=== PATIENT | female | born 1990 | race Caucasian/White ===

== ENCOUNTER 2021-08-17 07:17 | Emergency (ER) | payer SELFPAY ==
[2021-08-17] MEDS ORDERED: MORPHINE 4 MG/1 ML INJ IV ONE ×2 (09:46→11:29)
[2021-08-17] MEDS ORDERED: ONDANSETRON 4 MG/2 ML INJ IV ONE (09:46)
[2021-08-17] MEDS ORDERED: SODIUM CHLORIDE 0.9% 1000 ML 1,000 ML IV ONE (09:46)
--- NOTE | 2021-08-17 10:05 | Emergency Department Report ---
ED General Adult HPI - General Chief complaint: Sickle Cell Crisis Stated complaint: SICKLE CELL CRISIS PUI?: No Time Seen by Provider: 08/17/21 09:34 Source: patient Mode of arrival: Ambulatory Limitations: No Limitations - History of Present Illness Initial comments: 31-year-old -[place] obese female with a history of asthma and sickle cell disease presents to the ER today with complaints of flareup of her sickle cell pain. Patient states that symptoms started about 2 days ago. She complains of pain diffusely to her entire back, diffusely to her entire abdomen and both legs. Patient states that these are typical areas of pain when her sickle cell pain flares up. She reports associated vomiting x3, and she has had 1 episodes of watery stools. Patient states that she was on Dilaudid and morphine but ran out yesterday. She states that she recently moved here from [place] 2 days ago and has not been able to establish with a provider here locally as yet. Patient states that the last time she was admitted for sickle cell was about 1 week ago while in [place] and she was hospitalized for about 2 weeks. She is unsure of her baseline hemoglobin. She denies any fever, chills, chest pain, SOB, URI symptoms or cough, lower extremity swelling, fever, or chills. She denies any UTI symptoms. She states that she is currently on Depo which makes her menstrual cycles irregular but the last time she had a period was April 2021. Complaint: Sickle Cell pain -: days(s) (2) - Related Data Previous Rx's Medication Instructions Recorded Last Taken Type HYDROcodone/APAP 7.5-325 [Haswell 1 each PO Q6HR PRN #12 tablet 08/17/21 Unknown Rx 7.5/325] Promethazine [Phenergan] 25 mg PO Q6HR PRN #15 tab 08/17/21 Unknown Rx Allergies Allergy/AdvReac Type Severity Reaction Status Date / Time acetaminophen [From Tylenol] Allergy Unknown Verified 08/17/21 08:23 clindamycin Allergy Unknown Verified 08/17/21 08:23 hydrocodone Allergy Unknown Verified 08/17/21 08:23 ketorolac [From Toradol] Allergy Unknown Verified 08/17/21 08:23 naproxen Allergy Unknown Verified 08/17/21 08:23 oxycodone Allergy Unknown Verified 08/17/21 08:23 Penicillins Allergy Unknown Verified 08/17/21 08:23 senna Allergy Unknown Verified 08/17/21 08:23 ED Review of Systems ROS: Stated complaint: SICKLE CELL CRISIS Other details as noted in HPI Comment: All other systems reviewed and negative Constitutional: denies: chills, fever Eyes: denies: eye pain, eye discharge, vision change ENT: denies: ear pain, throat pain Respiratory: denies: cough, shortness of breath, SOB with exertion, SOB at rest, wheezing Cardiovascular: denies: chest pain, palpitations Gastrointestinal: abdominal pain, nausea, vomiting. denies: diarrhea, constipation, hematemesis, melena, hematochezia Genitourinary: denies: urgency, dysuria, discharge Musculoskeletal: back pain Skin: denies: rash, lesions, change in color, change in hair/nails, pruritus Neurological: denies: headache, weakness, numbness, paresthesias, confusion, abnormal gait, vertigo Psychiatric: denies: anxiety, depression, auditory hallucinations, visual hallucinations, homicidal thoughts, suicidal thoughts Hematological/Lymphatic: denies: easy bleeding, easy bruising, swollen glands ED Past Medical Hx - Past Medical History Previous Medical History?: Yes Hx Sickle Cell Disease: Yes Hx Asthma: Yes - Surgical History Past Surgical History?: No - Medications Home Medications: Home Medications Medication Instructions Recorded Confirmed Last Taken Type HYDROcodone/APAP 7.5-325 [Haswell 1 each PO Q6HR PRN #12 tablet 08/17/21 Unknown Rx 7.5/325] Promethazine [Phenergan] 25 mg PO Q6HR PRN #15 tab 08/17/21 Unknown Rx ED Physical Exam - General Limitations: No Limitations General appearance: alert, in no apparent distress, obese - Head Head exam: Present: atraumatic, normocephalic, normal inspection - Eye Eye exam: Present: PERRL, EOMI, scleral icterus Pupils: Present: normal accommodation - Neck Neck exam: Present: normal inspection, full ROM. Absent: meningismus - Respiratory Respiratory exam: Present: normal lung sounds bilaterally. Absent: respiratory distress, wheezes, rales, rhonchi - Cardiovascular Cardiovascular Exam: Present: regular rate, normal rhythm, normal heart sounds - GI/Abdominal GI/Abdominal exam: Present: soft. Absent: distended, tenderness, guarding, rebound - Extremities Exam Extremities exam: Present: normal inspection, full ROM, tenderness (Diffusely to entire lower leg bilateral). Absent: normal capillary refill, pedal edema - Neurological Exam Neurological exam: Present: alert, oriented X3, CN II-XII intact, normal gait - Psychiatric Psychiatric exam: Present: normal affect, normal mood - Skin Skin exam: Present: intact ED Course Vital Signs 08/17/21 08/17/21 08:23 16:52 Temperature 99.4 F 98.0 F Pulse Rate 114 H 102 H Respiratory 16 16 Rate Blood Pressure 143/87 134/86 [Left] O2 Sat by Pulse 98 98 Oximetry ED Medical Decision Making - Lab Data Result diagrams: 08/17/21 14:00 08/17/21 14:00 - Medical Decision Making Labs reviewed -patient white count is normal, H&H is also normal, platelet count is normal and her retake count is 5.85; CMP reviewed, -- T bili 2.5 suspect sec to her hx SCD, remaining CMP values unremarkable. UA normal. Patient asking for more pain medication due to she has been observed patient sitting comfortably, resting on recliner on her phone. She received total of morphine 8 mg and Dilaudid one as well as Benadryl 25 mg IV. She does not appear to be in any acute distress. She has no chest pain or shortness of breath. She has a soft nontender abdomen. She has not had any vomiting during stay. She has no lower extremity swelling or calf tenderness. Her vital signs are stable. I do not see an indication for continued pain medication, continued testing, or admission at this time. Patient has pain but not in crisis at this time. Patient reported that she is out of her pain medication for the past 2 days past 2 days. Reviewed patient information on [facility], and on August 14, 2020 patient received 7 tablets of morphine ER 15 mg (which should last until 08/21), and on August 13, 2021 she received 3 tablets of Dilaudid 2 mg, this past month alone patient had received a total of 44 tablets of morphine, 24 tablets of Dilaudid. At most patient will receive a prescription for hydrocodone and a prescription for Phenergan but she will need to follow-up with local roller skates assembler and or her primary care doctor continued refill on her morphine and Dilaudid if indicated. Patient will be given referral follow-ups to PCP and also hematology. She was also recommended to [facility]. Patient expressed understanding. Patient was stable at time of discharge Critical care attestation.: If time is entered above; I have spent that time in minutes in the direct care of this critically ill patient, excluding procedure time. ED Disposition Clinical Impression: Sickle-cell disease with pain Disposition: 01 HOME / SELF CARE / HOMELESS Is pt being admited?: No Does the pt Need Aspirin: No Condition: Stable Instructions: Sickle Cell Testing, Chronic Pain, Adult Additional Instructions: I recommend that you take the hydrocodone as prescribed to help with your pain. You can take Phenergan to help with nausea and vomiting. Follow-up with the roller skates assembler listed on your discharge instructions or you can follow-up with the [facility]le cell clinic for further treatment and evaluation of your sickle cell. Increase your water intake. Return to the ER if your symptoms worsens. Prescriptions: HYDROcodone/APAP 7.5-325 [Haswell 7.5/325] 1 each PO Q6HR PRN #12 tablet PRN Reason: Pain Promethazine [Phenergan] 25 mg PO Q6HR PRN #15 tab PRN Reason: Nausea Referrals: TOSHIA BRAVO MD [Staff Physician] - 3-5 Days TRACEY SANCHEZ MD [Staff Physician] - 3-5 Days Forms: Work/School Release Form(ED) Time of Disposition: 15:55
[2021-08-17] MEDS ORDERED: diphenhydrAMINE 50 MG/ML VIAL IV ONE (11:29)
[2021-08-17 11:45] LABS: Bilirubin,Urine NEG (Negative); Blood,Urine NEG (Negative); Color,Urine Amber (Yellow)
[2021-08-17 11:48] LABS: Bacteria,Urine 2+ /HPF (Negative)
[2021-08-17] MEDS ORDERED: HYDROmorphone 1 MG/1 ML INJ IV ONE (14:05)
[2021-08-17 14:24] LABS: Hematocrit 32.4 % (30.3-42.9); Hemoglobin 10.5 gm/dl (10.1-14.3); Mean Corpuscular HGB Conc 32 % (30-34); Mean Corpuscular Volume 103 fl (79-97); Platelet Count 367 K/mm3 (140-440); Red Blood Count 3.16 M/mm3 (3.65-5.03); Red Cell Distribution Width 23.3 % (13.2-15.2)
[2021-08-17 14:52] LABS: Alanine Aminotransferase 22 units/L (7-56); Albumin 4.8 g/dL (3.9-5); Blood Urea Nitrogen 7 mg/dL (7-17); Calcium 9.1 mg/dL (8.4-10.2); Hemolysis Index 88
[2021-08-17 14:58] LABS: BUN/Creatinine Ratio 18
[2021-08-17 15:43] LABS: Basophils % (Manual) 0 % (0.0-1.8); Eosinophils % (Manual) 0 % (0.0-4.3); Total Cells Counted 100
[2021-08-17 15:44] LABS: Anisocytosis 2+; Ovalocytes Few; Platelet Estimate Consistent w Auto; Poikilocytosis 2+; Sickle Cells Few; Target Cells 2+
[2021-08-17 16:53] VITALS: BP 134/86
== END 2021-08-17 16:53 | disposition home or self-care (01) ==
LOC: ED 07:17
DX: D57.00 Hb-SS disease with crisis, unspecified (principal); J45.909 Unspecified asthma, uncomplicated
CPT/HCPCS: 36415; 80053; 81001; 83690; 84703; 85007; 85025; 85045; 96361; 96374; 96375; 99283; J1170; J1200; J2270; J2405; J7030; Q0162

== ENCOUNTER 2021-08-19 07:52 | Emergency (ER) | payer MEDICARE ==
[2021-08-19] MEDS ORDERED: HYDROmorphone 2 MG/1 ML INJ IM ONE (08:41)
[2021-08-19] MEDS ORDERED: ONDANSETRON 4 MG ODT TAB PO ONE (08:41)
[2021-08-19] MEDS ORDERED: diphenhydrAMINE 25 MG CAP PO ONE (08:41)
[2021-08-19] MEDS ORDERED: SODIUM CHLORIDE 0.9% 1000 ML 1,000 ML IV ONE (08:42)
--- NOTE | 2021-08-19 08:43 | Emergency Department Report ---
ED General Adult HPI - General Chief complaint: Sickle Cell Crisis Stated complaint: SICKEL CELL PUI?: Yes Time Seen by Provider: 08/19/21 08:39 Source: patient, RN notes reviewed, old records reviewed Mode of arrival: Ambulatory Limitations: No Limitations - History of Present Illness Initial comments: The patient was evaluated in the emergency department for symptoms described in the history of present illness. He/she was evaluated in the context of the global COVID-19 pandemic, which necessitated consideration that the patient might be at risk for infection with the virus that causes COVID-19. Institutional protocols and algorithms that pertain to the evaluation of patients at risk for COVID-19 are in a state of rapid change based on information released by regulatory bodies including the CDC and federal and state organizations. These policies and algorithms were followed during the patient's care in the emergency department. Please note that these policies, procedures and recommendations changed on a rapid basis. During the history and physical examination, I am chaperoned by LOUISA Pritchard and LOUISA Fernandez Past medical history: Sickle cell disease, narcotic seeking tendencies, body mass index of 40, avascular necrosis, sickle cell anemia, reflux recent diagnosis of COVID-19. This is a 31-year-old female. She is not known to myself previously. Patiently recently relocated here from [place]. While in [place], she was seen at [facility]. She was evaluated in an emergency room 3 times while in [place], and each time having essentially unremarkable laboratory work. Patient was ultimately admitted to hospital in [place] for sickle cell crisis, and was discharged a few days ago. She has recently relocated here from [place]. She does not have established outpatient care here in the state. She complains of chest wall pain, abdominal pain, nausea, and body aches. No fever. No urinary symptoms. Her pain typically improves with hydromorphone. Of note, documentation from aforementioned hospital indicates that she can receive morphine, fentanyl, and hydromorphone without difficulty. In addition, enclosed documentation from prior hospital valuations indicates that this patient may have narcotic seeking tendencies. It also appears that this patient has had COVID-19 he reports that she is not vaccinated. This patient did not disclose to myself that she had a diagnosis of COVID-19, and this was elucidated while reviewing her old medical records. Her pain typically decreases with hydromorphone. She reports that she is s exually active with one partner, denies a history of STI that she is aware of. She also denies urinary symptoms. This patient was seen in this hospital a few days ago for similar symptoms, and treated and evaluated appropriately, and discharged. Her laboratory studies were essentially unremarkable for acute or emergent findings. -: Gradual, week(s) Location: chest, back, abdomen, left, right, lower extremity Severity scale (0 -10): 10 Quality: aching Consistency: constant Improves with: medication Worsens with: movement - Related Data Previous Rx's Medication Instructions Recorded Last Taken Type HYDROcodone/APAP 7.5-325 [[place] 1 each PO Q6HR PRN #12 tablet 08/17/21 Unknown Rx 7.5/325] Promethazine [Phenergan] 25 mg PO Q6HR PRN #15 tab 08/17/21 Unknown Rx Acetaminophen [Non-Aspirin Extra 500 mg PO Q6HR PRN #30 tablet 08/19/21 Unknown Rx Strength] Albuterol Sulfate [Proair 90 mcg IH Q4HR PRN #2 aer.pow.ba 08/19/21 Unknown Rx Respiclick] DOXYCYCLINE Hyclate [Vibramycin] 100 mg PO Q12HR #20 capsule 08/19/21 Unknown Rx Abran Root [Abran] 250 mg PO QID PRN #30 capsule 08/19/21 Unknown Rx Hydroxyurea 2,000 mg PO QDAY #360 cap 08/19/21 Unknown Rx Pregabalin [Lyrica] 150 mg PO BID #60 cap 08/19/21 Unknown Rx Allergies Allergy/AdvReac Type Severity Reaction Status Date / Time acetaminophen [From Tylenol] Allergy Unknown Verified 08/19/21 08:02 clindamycin Allergy Unknown Verified 08/19/21 08:02 hydrocodone Allergy Unknown Verified 08/19/21 08:02 ketorolac [From Toradol] Allergy Unknown Verified 08/19/21 08:02 naproxen Allergy Unknown Verified 08/19/21 08:02 oxycodone Allergy Unknown Verified 08/19/21 08:02 Penicillins Allergy Unknown Verified 08/19/21 08:02 senna Allergy Unknown Verified 08/19/21 08:02 ED Review of Systems ROS: Stated complaint: SICKEL CELL Other details as noted in HPI Constitutional: denies: fever Eyes: denies: eye discharge ENT: denies: congestion Respiratory: denies: wheezing Cardiovascular: chest pain (Chest wall pain) Gastrointestinal: nausea. denies: abdominal pain, vomiting Genitourinary: denies: dysuria Musculoskeletal: back pain, arthralgia, myalgia Hematological/Lymphatic: denies: easy bleeding ED Past Medical Hx - Past Medical History Hx Sickle Cell Disease: Yes Hx Asthma: Yes - Social History Smoking Status: Never Smoker Substance Use Type: None - Medications Home Medications: Home Medications Medication Instructions Recorded Confirmed Last Taken Type HYDROcodone/APAP 7.5-325 [[place] 1 each PO Q6HR PRN #12 tablet 08/17/21 Unknown Rx 7.5/325] Promethazine [Phenergan] 25 mg PO Q6HR PRN #15 tab 08/17/21 Unknown Rx Acetaminophen [Non-Aspirin Extra 500 mg PO Q6HR PRN #30 tablet 08/19/21 Unknown Rx Strength] Albuterol Sulfate [Proair 90 mcg IH Q4HR PRN #2 aer.pow.ba 08/19/21 Unknown Rx Respiclick] DOXYCYCLINE Hyclate [Vibramycin] 100 mg PO Q12HR #20 capsule 08/19/21 Unknown Rx Abran Root [Abran] 250 mg PO QID PRN #30 capsule 08/19/21 Unknown Rx Hydroxyurea 2,000 mg PO QDAY #360 cap 08/19/21 Unknown Rx Pregabalin [Lyrica] 150 mg PO BID #60 cap 08/19/21 Unknown Rx ED Physical Exam - General Limitations: No Limitations General appearance: alert, in no apparent distress, obese - Head Head exam: Present: atraumatic, normocephalic - Eye Eye exam: Present: normal appearance, EOMI. Absent: nystagmus - ENT ENT exam: Present: normal exam, normal orophraynx, mucous membranes moist, normal external ear exam - Neck Neck exam: Present: normal inspection, full ROM. Absent: tenderness, meningismus - Respiratory Respiratory exam: Present: normal lung sounds bilaterally. Absent: respiratory distress, wheezes, rales, rhonchi, stridor, decreased breath sounds - Cardiovascular Cardiovascular Exam: Present: normal rhythm, tachycardia, normal heart sounds. Absent: bradycardia, irregular rhythm, systolic murmur, diastolic murmur, rubs, gallop - GI/Abdominal GI/Abdominal exam: Present: soft, tenderness, other (There is right lower quad rant/suprapubic tenderness). Absent: distended, guarding, rebound, rigid, pulsatile mass - External exam: Present: normal external exam. Absent: erythema, swelling, lesions, lacerations Speculum exam: Present: normal speculum exam, vaginal discharge, cervical discharge, other (Chaperoned by louisa Pritchard). Absent: vaginal bleeding Bi-manual exam: Present: normal bi-manual exam. Absent: cervical motion tend ernes, adnexal tenderness, adnexal mass, uterine enlargement, uterine tenderness - Extremities Exam Extremities exam: Present: normal inspection, full ROM, other (2+ pulses noted in the bilateral upper and lower extremities. There is mild long bony tenderness. The pelvis is stable. The muscular compartments are soft). Absent: pedal edema, calf tenderness - Back Exam Back exam: Present: normal inspection, full ROM, paraspinal tenderness. Absent: tenderness, CVA tenderness (R), CVA tenderness (L), vertebral tenderness - Neurological Exam Neurological exam: Present: alert, oriented X3, normal gait, other (No facial droop. Tongue midline. Extraocular movements intact bilaterally. Facial sensation intact to light touch in V1, V2, V3 distribution bilaterally. 5 and a 5 strength in 4 extremities. Sensation intact to light touch in 4 extremities.). Absent: motor sensory deficit - Psychiatric Psychiatric exam: Present: normal affect, normal mood - Skin Skin exam: Present: warm, dry, intact, normal color. Absent: rash ED Course Vital Signs 08/19/21 08/19/21 08/19/21 08:02 08:26 08:28 Temperature 98.6 F Pulse Rate 117 H 108 H 108 H Respiratory 15 16 16 Rate Blood Pressure 141/91 128/93 Blood Pressure 128/93 [Left] O2 Sat by Pulse 98 98 98 Oximetry 08/19/21 08/19/21 11:50 14:26 Temperature Pulse Rate 90 Respiratory 16 Rate Blood Pressure Blood Pressure 128/86 [Left] O2 Sat by Pulse 100 100 Oximetry - Reevaluation(s) Reevaluation #1: 08/19/21 13:51 Differential diagnosis, including the not limited to: Sickle cell pain, sickle cell crisis, costochondritis, pneumonia, trichomoniasis, pelvic inflammatory disease, appendicitis, pneumonia, COVID-19, Covid long-hauler, narcotic dependence, Assessment and plan: 31-year-old female, who was afebrile, with reassuring vital signs, with improved tachycardia, who is presenting with what appears to be a subacute manifestation of long-term chest wall pain, abdominal pain. Patient seen at multiple hospitals and emergency rooms in [place] for similar symptoms. She was discharged 3 times to the emergency room as well in the [facility], and there is documentation of suspicion for narcotic seeking tendencies. Patient was ultimately admitted while in [place], and found to have Covid 19. The patient is not tachypneic or hypoxic, does not have leg pain or leg swelling at this time. I think pulmonary embolism is unlikely at this time. The patie nt recently had laboratory studies performed at this hospital, which were negative for acute or emergent findings that would require admission or hospitalization. Patient appears comfortable in stretcher/chair, and not in any acute distress. Patient is adamant that she is not been sexually active for a long time, nevertheless, given lower abdominal pain, a gynecologic examination was performed, which was unremarkable, but the patient was found to have trichomoniasis. I explained the significance of trichomoniasis to this patient. She will be medicated with Flagyl, doxycycline, and ceftriaxone. As a third- generation cephalosporin, ceftriaxone is structurally dissimilar to penicillin and very unlikely to cause anaphylactic or anaphylactoid reaction. This patient was observed in this department for a prolonged period of time without clinical decompensation. She is unfortunately allergic to acetaminophen, and ketorolac. Prior discharge paperwork from [facility] indicate that she has received Mobic for pain. It is also documented from her prior medical records that she has received Tylenol/acetaminophen. She will need to follow-up with an outpatient shot dropper, pain specialist, or primary care doctor for dispensation of narcotic/controlled substances. Patient may be discharged from this emergency room with Tylenol, albuterol, hydroxyurea, gabapentin. We will also continue doxycycline. I suspect that pulmonary infiltrates noted on CT scan abdomen pelvis are likely secondary to persistent Covid. Doxycycline for pulmonary coverage, as well as empiric PID coverage 08/19/21 13:55 Patient very difficult IV stick. Potassium hemolyzed. Renal function within normal limits. I do not suspect emergent hyperkalemia at this time. Troponin negative x1. Chest wall pain present for weeks. ED Medical Decision Making - Lab Data Result diagrams: 08/19/21 11:36 08/19/21 12:44 Vital Signs 08/19/21 08/19/21 08/19/21 08:02 08:26 08:28 Temperature 98.6 F Pulse Rate 117 H 108 H 108 H Respiratory 15 16 16 Rate Blood Pressure 141/91 128/93 Blood Pressure 128/93 [Left] O2 Sat by Pulse 98 98 98 Oximetry 08/19/21 11:50 Temperature Pulse Rate Respiratory Rate Blood Pressure Blood Pressure [Left] O2 Sat by Pulse 100 Oximetry Lab Results 08/19/21 08/19/21 08/19/21 Range/Units 11:36 11:36 11:36 WBC 9.4 (4.5-11.0) K/mm3 RBC 2.86 L (3.65-5.03) M/mm3 Hgb 9.6 L (10.1-14.3) gm/dl Hct 28.7 L (30.3-42.9) % MCV 100 H (79-97) fl MCH 34 H (28-32) pg MCHC 34 (30-34) % RDW 23.3 H (13.2-15.2) % Plt Count 323 (140-440) K/mm3 Percent Retic 4.76 H (0.78-2.58) % PT 13.9 (12.2-14.9) Sec. INR 0.96 (0.87-1.13) Sodium TNR Potassium TNR Chloride TNR Carbon Dioxide TNR Anion Gap TNR BUN TNR Creatinine TNR Estimated GFR TNR BUN/Creatinine Ratio TNR Glucose TNR Calcium TNR Magnesium TNR Total Bilirubin TNR AST TNR ALT TNR Alkaline Phosphatase TNR Total Creatine Kinase TNR Troponin T TNR Total Protein TNR Albumin TNR Albumin/Globulin Ratio TNR HCG, Quant (0-4) mIU/mL 08/19/21 08/19/21 Range/Units 11:36 12:44 WBC (4.5-11.0) K/mm3 RBC (3.65-5.03) M/mm3 Hgb (10.1-14.3) gm/dl Hct (30.3-42.9) % MCV (79-97) fl MCH (28-32) pg MCHC (30-34) % RDW (13.2-15.2) % Plt Count (140-440) K/mm3 Percent Retic (0.78-2.58) % PT (12.2-14.9) Sec. INR (0.87-1.13) Sodium 137 Potassium Chloride 106.1 Carbon Dioxide 20 L Anion Gap 17 BUN 5 L Creatinine Estimated GFR BUN/Creatinine Ratio Glucose 87 Calcium 8.9 Magnesium Total Bilirubin AST ALT Alkaline Phosphatase Total Creatine Kinase Troponin T Total Protein Albumin Albumin/Globulin Ratio HCG, Quant < 2 (0-4) mIU/mL Lab Results 08/19/21 08/19/21 08/19/21 Range/Units 11:36 11:36 11:36 WBC 9.4 (4.5-11.0) K/mm3 RBC 2.86 L (3.65-5.03) M/mm3 Hgb 9.6 L (10.1-14.3) gm/dl Hct 28.7 L (30.3-42.9) % MCV 100 H (79-97) fl MCH 34 H (28-32) pg MCHC 34 (30-34) % RDW 23.3 H (13.2-15.2) % Plt Count 323 (140-440) K/mm3 Percent Retic 4.76 H (0.78-2.58) % PT 13.9 (12.2-14.9) Sec. INR 0.96 (0.87-1.13) Sodium TNR Potassium TNR Chloride TNR Carbon Dioxide TNR Anion Gap TNR BUN TNR Creatinine TNR Estimated GFR TNR BUN/Creatinine Ratio TNR Glucose TNR Calcium TNR Magnesium TNR Total Bilirubin TNR AST TNR ALT TNR Alkaline Phosphatase TNR Total Creatine Kinase TNR Troponin T TNR Total Protein TNR Albumin TNR Albumin/Globulin Ratio TNR HCG, Quant (0-4) mIU/mL 08/19/21 08/19/21 08/19/21 Range/Units 11:36 12:44 12:44 WBC (4.5-11.0) K/mm3 RBC (3.65-5.03) M/mm3 Hgb (10.1-14.3) gm/dl Hct (30.3-42.9) % MCV (79-97) fl MCH (28-32) pg MCHC (30-34) % RDW (13.2-15.2) % Plt Count (140-440) K/mm3 Percent Retic (0.78-2.58) % PT (12.2-14.9) Sec. INR (0.87-1.13) Sodium 137 Potassium 6.0 H D Chloride 106.1 Carbon Dioxide 20 L Anion Gap 17 BUN 5 L Creatinine 0.6 Estimated GFR > 60 BUN/Creatinine Ratio 8 Glucose 87 Calcium 8.9 Magnesium Total Bilirubin AST ALT Alkaline Phosphatase Total Creatine Kinase Troponin T < 0.010 Total Protein Albumin Albumin/Globulin Ratio HCG, Quant < 2 (0-4) mIU/mL - EKG Data -: EKG Interpreted by De EKG shows normal: sinus rhythm Rate: tachycardia - EKG Data 08/19/21 13:30 The EKG is interpreted at 09: 4 0 Sinus rhythm, tachycardia, rate 102 bpm. Normal axis, QTC 4 4 9 ms. Motion artifact, high left ventricular voltage. Normal P wave axis. Not a STEMI. 08/19/21 13:50 The EKG today is compared to prior hospital EKG from [facility], performed on July 30, 2021, appears to be unchanged from prior - Radiology Data Radiology results: report reviewed, image reviewed CT ABDOMEN AND PELVIS WITHOUT CONTRAST HISTORY: lower abd pain COMPARISON: None TECHNIQUE: Routine abdominal and pelvic CT exam performed without contrast. Lack of intravenous contrast limits evaluation of the vascular and solid organs.. All CT scans at this location are performed using CT dose reduction for ALARA by means of automated exposure control. FINDINGS: CT ABDOMEN: Lung Bases: There are patchy areas of consolidation and groundglass opacity in both lungs. Liver: No significant abnormality. Biliary: Gallbladder is surgically absent. Spleen: No significant abnormality. Unenlarged. Pancreas: No significant abnormality. Adrenals: No significant abnormality. Kidneys: No significant abnormality. Lymphatics: No lymphadenopathy. Vasculature: No significant abno rmality. Bowel/Peritoneum: No significant abnormality. No free air. No free fluid. Normal appendix. CT PELVIC: : No significant abnormality. Lymphatics: No lymphadenopathy. Osseous Structures: No aggressive appearing osseous lesions. Additional Findings: None IMPRESSION: 1. Patchy areas of consolidation and groundglass opacity in both lower lungs likely indicating multifocal pneumonia. 2. No additional acute findings in the abdomen or pelvis. Signer Name: Wolf Saul MD Signed: 08/19/2021 12:23 PM Workstation Name: [email or web address] [id number] 1 VIEW INDICATION: chest wall pain hbss. COMPARISON: None FINDINGS: Support devices: None. Heart: Within normal limits. Lungs/Pleura: There is poor inspiration. Minor bibasilar atelectatic changes are suspected. No acute infiltrate, pleural effusion or pneumothorax is appreciated. Additional findings: No obvious thoracic bony abnormality. IMPRESSION: No acute findings. Signer Name: Raj Alvarado Jr, MD Signed: 08/19/2021 8:05 AM Workstation Name: [id number] Critical care attestation.: If time is entered above; I have spent that time in minutes in the direct care of this critically ill patient, excluding procedure time. ED Disposition Clinical Impression: Lower abdominal pain, Trichomoniasis, Chest wall pain, Pulmonary infiltrate, COVID-19, Body mass index exceeds 40, Sickle-cell disease with pain Disposition: HOME / SELF CARE / HOMELESS Is pt being admited?: No Does the pt Need Aspirin: No Condition: Good Instructions: COVID-19, Trichomoniasis, Costochondritis Additional Instructions: Please take the prescribed medications as needed and directed. Patient diagnosed with COVID-19 while in hospital in [place], patient likely experiencing long-term symptoms of COVID-19. We recommend that patient follow- up with a primary care doctor or shot dropper within the next 3 to 5 days for re peat checkup and evaluation. Patient's wet prep today demonstrated trichomoniasis, which is typically an STI. Recommend outpatient testing for hepatitis, syphilis, and HIV. Recommend that all sexual partners to be tested/treated/evaluated for potential STI. Recommend that patient abstain from sexual activity until cleared to resume by an outpatient primary care doctor. Cultures were sent today, and results will be available in about the next week. Please have a primary care doctor contact the medical records department to obtain culture results. Avoid consumption of alcohol. Please return to the emergency room right away with new pain, worsened pain, migration of pain, projectile vomiting, change in mental status, confusion, inability tolerate liquid feeds, new, worsened or different symptoms not present on the initial emergency room evaluation Patient may take the abran as needed for nausea and vomiting. She may take the Tylenol/acetaminophen, as well as Lyrica as needed for physical pain. The patient will need to follow-up with a primary care doctor, shot dropper, or pain specialist for refills on narcotic prescriptions. We also recommend weight loss, and physical activity as tolerated. Please have your primary care doctor contact the medical records department to follow-up on laboratory studies and imaging studies Prescriptions: Abran Root [Abran] 250 mg PO QID PRN #30 capsule PRN Reason: Nausea Hydroxyurea 2,000 mg PO QDAY #360 cap Pregabalin [Lyrica] 150 mg PO BID #60 cap Acetaminophen [Non-Aspirin Extra Strength] 500 mg PO Q6HR PRN #30 tablet PRN Reason: Pain , Severe (7-10) Albuterol Sulfate [Proair Respiclick] 90 mcg IH Q4HR PRN #2 aer.pow.ba PRN Reason: Wheezing DOXYCYCLINE Hyclate [Vibramycin] 100 mg PO Q12HR #20 capsule Referrals: [facility] [Provider Group] - 3-5 Days YUMI OLIVER DO [Staff Physician] - 3-5 Days JOELLE GILL MD [Staff Physician] - 3-5 Days
--- NOTE | 2021-08-19 09:10 | XRay Report ---
CHEST 1 VIEW INDICATION: chest wall pain hbss. COMPARISON: None FINDINGS: Support devices: None. Heart: Within normal limits. Lungs/Pleura: There is poor inspiration. Minor bibasilar atelectatic changes are suspected. No acute infiltrate, pleural effusion or pneumothorax is appreciated. Additional findings: No obvious thoracic bony abnormality. IMPRESSION: No acute findings. Signer Name: Raj Alvarado Jr, MD Signed: 08/19/2021 9:05 AM Workstation Name: [id number]
[2021-08-19] MEDS ORDERED: SODIUM CHLORIDE P/F VIAL 10 ML 10 ML ONE (11:28)
[2021-08-19] MEDS ORDERED: metroNIDAZOLE 500 MG TAB PO ONE (11:37)
[2021-08-19] MEDS ORDERED: HYDROmorphone 2 MG/1 ML INJ IV ONE ×2 (11:37→12:24)
[2021-08-19] MEDS ORDERED: DOXYCYCLINE 100 MG CAP PO ONE (11:37)
[2021-08-19 11:56] LABS: Hematocrit 28.7 % (30.3-42.9); Hemoglobin 9.6 gm/dl (10.1-14.3); Mean Corpuscular HGB Conc 34 % (30-34); Mean Corpuscular Volume 100 fl (79-97); Platelet Count 323 K/mm3 (140-440); Red Blood Count 2.86 M/mm3 (3.65-5.03)
[2021-08-19 12:01] LABS: Red Cell Distribution Width 23.3 % (13.2-15.2)
[2021-08-19 12:07] LABS: INR 0.96 (0.87-1.13)
[2021-08-19 12:21] LABS: BUN/Creatinine Ratio TNR; Blood Urea Nitrogen TNR mg/dL (7-17); Calcium TNR mg/dL (8.4-10.2)
[2021-08-19 12:22] LABS: Alanine Aminotransferase TNR units/L (7-56); Albumin TNR g/dL (3.9-5); Hemolysis Index TNR
[2021-08-19] MEDS ORDERED: SODIUM CHLORIDE 0.9% 50 ML IVPB IV ONE (12:30)
[2021-08-19 13:24] LABS: Blood Urea Nitrogen 5 mg/dL (7-17); Calcium 8.9 mg/dL (8.4-10.2); Hemolysis Index 284
--- NOTE | 2021-08-19 13:28 | Cat Scan Report ---
CT ABDOMEN AND PELVIS WITHOUT CONTRAST HISTORY: lower abd pain COMPARISON: None TECHNIQUE: Routine abdominal and pelvic CT exam performed without contrast. Lack of intravenous cont rast limits evaluation of the vascular and solid organs.. All CT scans at this location are performed using CT dose reduction for ALARA by means of automated exposure control. FINDINGS: CT ABDOMEN: Lung Bases: There are patchy areas of consolidation and groundglass opacity in both lungs. Liver: No significant abnormality. Biliary: Gallbladder is surgically absent. Spleen: No significant abnormality. Unenlarged. Pancreas: No significant abnormality. Adrenals: No significant abnormality. Kidneys: No significant abnormality. Lymphatics: No lymphadenopathy. Vasculature: No significant abnormality. Bowel/Peritoneum: No significant abnormality. No free air. No free fluid. Normal appendix. CT PELVIC: : No significant abnormality. Lymphatics: No lymphadenopathy. Osseous Structures: No aggressive appearing osseous lesions. Additional Findings: None IMPRESSION: 1. Patchy areas of consolidation and groundglass opacity in both lower lungs likely indicating multif ocal pneumonia. 2. No additional acute findings in the abdomen or pelvis. Signer Name: Wolf Saul MD Signed: 08/19/2021 1:23 PM Workstation Name: [employer]
[2021-08-19 13:32] LABS: BUN/Creatinine Ratio 8
[2021-08-19 14:27] VITALS: BP 128/86
[2021-08-19 14:30] LABS: Basophils % (Manual) 0 % (0.0-1.8); Eosinophils % (Manual) 0 % (0.0-4.3); Total Cells Counted 100
[2021-08-19 14:31] LABS: Anisocytosis 2+; Ovalocytes Few; Platelet Estimate Consistent w Auto; Poikilocytosis 2+; Sickle Cells Few; Target Cells 2+
--- NOTE | 2021-08-20 08:48 | Electrocardiograph Report ---
[facility] Test Date: 2021-08-19 Test Time: 09:40:18 Pat Name: FRITZ KEYS Department: Room: Gender: F Environmental Compliance Inspector: SKYLAR : 1990 Requested By: KAVYA COMER Order Number: [id number] Reading MD: Piotr Blank Measurements Intervals [place] Rate: 102 P: 3 RI: 182 QRS: 18 QRSD: 92 T: 9 QT: 344 QTc: 449 Interpretive Statements Sinus tachycardia Nonspecific repol abnormality, inferior leads No previous ECG available for comparison Electronically Signed On 08-20-2021 8:47:48 EST by Piotr Blank
== END 2021-08-19 14:26 | disposition home or self-care (01) ==
LOC: ED 07:52
DX: R10.30 Lower abdominal pain, unspecified (principal); A59.9 Trichomoniasis, unspecified; R07.9 Chest pain, unspecified; R91.8 Other nonspecific abnormal finding of lung field; U07.1 COVID-19; Z68.41 Body mass index [BMI] 40.0-44.9, adult; D57.219 Sickle-cell/Hb-C disease with crisis, unspecified; Z88.6 Allergy status to analgesic agent; Z88.0 Allergy status to penicillin; Z88.5 Allergy status to narcotic agent; Z88.1 Allergy status to other antibiotic agents; Z88.8 Allergy status to other drugs, medicaments and biological substances; J45.909 Unspecified asthma, uncomplicated
CPT/HCPCS: 36415; 71045; 74176; 80048; 80053; 84484; 84702; 85007; 85025; 85045; 85610; 85660; 87210; 87591; 93005; 93010; 96365; 96372; 96375; 96376; 99285; J0696; J1170; J7030; J3490; Q0162